=== PATIENT | female | born 1960 | race Caucasian/White ===

== ENCOUNTER 2017-07-18 09:19 | Outpatient (CLI) | payer BC ==
--- NOTE | 2017-07-18 15:38 | MMO ---
BILATERAL SCREENING MAMMOGRAM: DATE: 07/18/17 HISTORY: 57-year-old female for screening mammography. COMPARISON: None available. FINDINGS: Bilateral MLO and CC views of the breasts show scattered fibroglandular breast tissue. A benign-appe aring calcification is seen in the left breast. There is no evidence of suspicious mass, suspicious cluster of microcalcifications, or area of architectural distortion. Interpretation of this mammogram was performed with the assistance of computer-aided detection. IMPRESSION: BIRADS 2: Benign Finding(s) Annual screening mammography is recommended. POS: [facility]
== END 2017-07-18 09:20 | disposition home or self-care (01) ==
LOC: SCSMAMMO 09:19
PROVIDERS: ATTEND Family Medicine
DX: Z12.31 Encounter for screening mammogram for malignant neoplasm of breast (principal)
CPT/HCPCS: 77067; G0202

== ENCOUNTER 2018-12-31 15:16 | Outpatient (CLI) | payer BC ==
--- NOTE | 2018-12-31 16:10 | RAD ---
TWO VIEWS CHEST 12/31/18 PROVIDED CLINICAL HISTORY: Shortness of breath. FINDINGS: There is right convexity thoracic scoliosis. The cardiac and mediastinal silhouette is within normal limits. The lungs are hyperlucent suggesting emphysematous change. There is no focal consolidation, p leural fluid or pneumothorax apparent. IMPRESSION: Emphysematous changes are demonstrated. No evidence for an acute cardiopulmonary process. POS: [facility]
== END 2018-12-31 15:17 | disposition home or self-care (01) ==
LOC: BICRAD 15:16
PROVIDERS: ATTEND Internal Medicine Rheumatology
DX: R06.02 Shortness of breath (principal); J43.9 Emphysema, unspecified
CPT/HCPCS: 71046

== ENCOUNTER 2020-07-22 06:20 | Outpatient (CLI) | payer BC, OTHER ==
[2020-07-22 11:51] LABS: Hemoglobin 14.6 g/dL (12.0-16.0); Mean Corpuscular HGB CONC 33.6 g/dL (32.0-36.0); Mean Corpuscular Hemoglobin 31.5 pg (27.0-31.0); Mean Corpuscular Volume 93.6 fL (78.0-98.0); Mean Platelet Volume 9.2 fL (7.4-10.4); Platelet Count 222 thou/uL (130-400); RBC Distribution Width 12.3 % (11.5-14.5); Red Blood Cell (RBC) Count 4.66 mill/uL (4.20-5.40); White Blood Cell (WBC) Count 4.8 thou/uL (4.8-10.8)
[2020-07-22 12:37] LABS: Chloride 102 mmol/L (98-107); Potassium 4.5 mmol/L (3.5-5.1); Sodium 139 mmol/L (136-145)
[2020-07-22 12:38] LABS: Glucose 93 mg/dL (80-115)
[2020-07-22 12:40] LABS: Anion Gap 12 mmol/L (10-20); Carbon Dioxide 30 mmol/L (23-31)
[2020-07-22 12:42] LABS: Calc. Creatinine Clearance 0 mL/min (70-130); Estimated GFR-MDRD 53
[2020-07-22 12:43] LABS: BUN (Urea Nitrogen) 12 mg/dL (9.8-20.1)
[2020-07-22 19:43] LABS: SARS-CoV-2 MS2 Positive; SARS-CoV-2 N Gene Negative; SARS-CoV-2 S Gene Negative; SARS-CoV-2 by NAA Not Detected (NotDetected); SARS-CoV-2 orf1ab Negative
== END 2020-07-22 06:21 | disposition home or self-care (01) ==
LOC: LABBT 06:20
PROVIDERS: ATTEND Thoracic Surgery (Cardiothoracic Vascular Surgery)
DX: Z01.812 Encounter for preprocedural laboratory examination (principal); I25.10 Atherosclerotic heart disease of native coronary artery without angina pectoris; Z20.828 Contact with and (suspected) exposure to other viral communicable diseases
CPT/HCPCS: 80048; 85027; 87635; U0003

== ENCOUNTER 2020-07-22 09:45 | Inpatient (IN) | payer BC ==
--- NOTE | 2020-07-26 22:54 | HP ---
DATE OF SURGERY: 07/27/2020. HISTORY OF PRESENT ILLNESS: This is a 60-year-old female, who presented to Dr. Ramires after having an episode of bradycardia while getting local anesthesia for cataract surgery, which was then canceled. She had an abnormal stress test followed by subsequent CT calcium score in the 99th percentile for her age and finally a cardiac cath about 6 weeks ago showing severe 3-vessel coronary artery disease with preserved left ventricular ejection fraction. 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 She has not smoked for 30 years, has no hypertension, no family history and only mild cholesterol elevation by her account, although she does not know the number. PAST MEDICAL HISTORY: Significant only for cholesterol as well as depression and anxiety. MEDICATIONS: Include; 1. Crestor 20. 2. Aspirin 81. 3. Wellbutrin 150 extended release tablet daily. 4. Cymbalta 30 mg daily. 5. Nasal spray. 6. Lorazepam 0.5 mg as needed at bedtime. 7. Adderall 10 mg tablets twice a day as needed. ALLERGIES: NONE KNOWN. SOCIAL HISTORY: She is , although her has a different last name because that is how they do it when they are professors according to her. She does drink alcohol. FAMILY HISTORY: Hypertension and cancer. PHYSICAL EXAMINATION: VITAL SIGNS: Height 5 feet 4 inches, weight 134 pounds, and BMI 23. GENERAL: Alert, cooperative, and anxious lady. NECK: No carotid bruits. LUNGS: Clear to auscultation. CARDIAC: Regular rate and rhythm. No murmurs. ABDOMEN: Soft, nontender, and nondistended. EXTREMITIES: No edema. Peripheral pulses intact with a good Jatin's test in the left arm. NEUROLOGIC: Grossly normal. PLAN: At this time is for multivessel coronary artery bypass grafting to LAD, diagonal, ramus, right PDA and right posterior lateral with possible radial graft to the ramus. Informed consent has been obtained. Job ID: [id number]
[2020-07-27] MEDS ORDERED: Dexmedetomidine 200 MCG/2 ML VIAL ONE (06:33)
[2020-07-27] MEDS ORDERED: Vecuronium 10 MG VIAL ONE ×3 (06:33→09:19)
[2020-07-27] MEDS ORDERED: Midazolam HCl 5 mg/5 ml Vial ONE (06:33)
[2020-07-27] MEDS ORDERED: Midazolam HCl 2 mg/2 ml Vial ONE (06:33)
[2020-07-27] MEDS ORDERED: Fentanyl 100 MCG/2 ML VIAL ONE ×2 (06:33→13:56)
[2020-07-27] MEDS ORDERED: Albumin 5% 500 ML ONE (06:35)
[2020-07-27] MEDS ORDERED: Heparin 10,000 UNITS/1 ML VIAL 30,000 UNITS in Sodium Chloride 0.9% 1,000 ML FS SCH (06:45)
[2020-07-27] MEDS ORDERED: Aminocaproic Acid 5 GM/20 ML VIAL ONE (09:19)
[2020-07-27] MEDS ORDERED: Cardioplegic Soln 1,000 ML BAG ONE (09:19)
[2020-07-27] MEDS ORDERED: PROPOFOL 200 MG/20 ML VIAL ONE (09:19)
[2020-07-27] MEDS ORDERED: Potassium Chloride 60 MEQ/30 ML VIAL ONE (09:19)
[2020-07-27] MEDS ORDERED: Dexamethasone 20 MG/5 ML VIAL ONE (09:19)
[2020-07-27] MEDS ORDERED: Magnesium Sulfate 1 GM/2 ML VIAL ONE (09:19)
[2020-07-27] MEDS ORDERED: EPHEDRINE 25 MG/5 ML SYRINGE ONE (09:19)
[2020-07-27] MEDS ORDERED: Heparin 30,000 units/30 ml VIAL ONE (09:19)
[2020-07-27] MEDS ORDERED: Heparin 5,000 UNITS/ML VIAL ONE (09:19)
[2020-07-27] MEDS ORDERED: Protamine Sulfate 250 MG/25 ML VIAL ONE (09:19)
[2020-07-27] MEDS ORDERED: Calcium Chloride 1 GM/10 ML Abboject SYRINGE ONE (09:19)
[2020-07-27] MEDS ORDERED: Glycopyrrolate 0.2 MG/ML 5 ML SYRINGE ONE (09:19)
[2020-07-27] MEDS ORDERED: PHENYLEPHRINE-NS 100 MCG/ML 10 ML SYRINGE ONE (09:19)
[2020-07-27] MEDS ORDERED: Lidocaine 1% PF 5 ML VIAL ONE ×2 (09:19)
[2020-07-27] MEDS ORDERED: Ondansetron PF 4 MG/2 ML Vial ONE (09:19)
[2020-07-27] MEDS ORDERED: Mannitol 12.5 GM/50 ML ONE (09:19)
[2020-07-27] MEDS ORDERED: Papaverine 60 MG/2 ML VIAL ONE (09:19)
[2020-07-27] MEDS ORDERED: Nitroglycerin 50 MG/250 ML BOT ONE (09:19)
[2020-07-27] MEDS ORDERED: Sodium Bicarb 50 MEQ/50 ML Abboject 8.4% SYRINGE ONE (09:19)
[2020-07-27] MEDS ORDERED: Lidocaine 2% PF 100 mg/5 ml Syringe ONE (09:19)
[2020-07-27] MEDS ORDERED: Thrombin 5000 UNITS/5 ML VIAL ONE (09:19)
[2020-07-27] MEDS ORDERED: Ketorolac Tromethamine 30 MG/ML VIAL ONE (09:19)
[2020-07-27] MEDS ORDERED: Albumin 5% 250 ML ONE ×3 (13:28→13:49)
[2020-07-27] MEDS ORDERED: Potassium Chloride 20 MEQ/100 ML PREMIX BAG IVPB PRN (13:32)
[2020-07-27] MEDS ORDERED: Acetaminophen 325 MG TAB PO PRN (13:32)
[2020-07-27] MEDS ORDERED: Bisacodyl 10 MG SUPP PR PRN (13:32)
[2020-07-27] MEDS ORDERED: Fentanyl 100 MCG/2 ML VIAL SLOW IVP PRN (13:32)
[2020-07-27] MEDS ORDERED: hydrALAZINE 20 MG/ML VIAL SLOW IVP PRN (13:32)
[2020-07-27] MEDS ORDERED: Morphine 2 MG/ML VIAL SLOW IVP PRN (13:32)
[2020-07-27] MEDS ORDERED: Guaifenesin DM 100-10/5 ML UDCUP PO PRN (13:32)
[2020-07-27] MEDS ORDERED: Mag-Al 1200 mg/1200 mg/30 ML UDCUP PO PRN (13:32)
[2020-07-27] MEDS ORDERED: Nitroglycerin 50 MG/250 ML BOT 250 ML IVPB PRN (13:32)
[2020-07-27] MEDS ORDERED: niCARdipine 25 MG in Sodium Chloride 0.9% 250 ML 250 ML IVPB PRN (13:32)
[2020-07-27] MEDS ORDERED: Magnesium 2 GM/50 ML 2 GM in Premix Bag 1 BAG IVPB SCH (13:32)
[2020-07-27] MEDS ORDERED: Bisacodyl 5 MG TAB PO PRN (13:32)
[2020-07-27] MEDS ORDERED: Norepinephrine 8 MG/0.9% NS 250 ML IVPB PRN (13:32)
[2020-07-27] MEDS ORDERED: Hetastarch 6% 500 ML 500 ML IVPB PRN (13:32)
[2020-07-27] MEDS ORDERED: Post-Op Insulin Drip Protocol IVPB ONE (13:32)
[2020-07-27] MEDS ORDERED: Insulin Regular 300 UNITS/3 ML VIAL ONE (13:37)
[2020-07-27] MEDS ORDERED: DOPamine 400 MG/D5W 250 ML 250 ML ONE (13:43)
[2020-07-27] MEDS: Sodium Chloride 0.9% 1,000 ML IV SCH ×2 (13:45→23:34)
[2020-07-27] MEDS: DOPamine 400 MG/D5W 250 ML 250 ML IVPB PRN (13:45)
[2020-07-27 13:49] LABS: INR-International Normal Ratio 1.5; PTT 39.9 sec (22.9-36.1); Prothrombin Time 18.1 sec (12.0-14.7)
--- NOTE | 2020-07-27 13:58 | RAD ---
RADIOGRAPH CHEST 1 VIEW: DATE: 07/27/2020 TIME: 1:36 PM HISTORY: 60-year-old female status post open heart surgery COMPARISON: 12/31/2018 FINDINGS: Supine positioning makes this insensitive for pneumothorax detection. New sternotomy wires. New right sided central venous catheter with distal tip overlying right atrium. New left basilar drainage catheter. The visualized lung goodwin are grossly clear except for questionable small irregularly-shaped nodular density right upper lung zone partially overlapping the central vascular catheter. No cardiomegaly or pulmonary edema. IMPRESSION: 1) status post coronary artery bypass graft surgery. 2) right-sided central vascular catheter and left basilar drainage catheter..
[2020-07-27] MEDS ORDERED: Dextrose 50% Abboject 50 ML SYRINGE SLOW IVP PRN (14:00)
[2020-07-27] MEDS ORDERED: Dextrose 5% in Water 1,000 ML IV PRN (14:00)
[2020-07-27] MEDS ORDERED: HUMULIN R 100 UNITS in Sodium Chloride 0.9% 100 ML IVPB SCH (14:00)
[2020-07-27 14:03] LABS: Anion Gap 8 mmol/L (10-20); BUN (Urea Nitrogen) 7 mg/dL (9.8-20.1); Calc. Creatinine Clearance 91 mL/min (70-130); Calcium 6.7 mg/dL (7.8-10.44); Carbon Dioxide 21 mmol/L (23-31); Chloride 115 mmol/L (98-107); Estimated GFR-MDRD Greater than 90; Glucose 169 mg/dL (80-115); Potassium 3.8 mmol/L (3.5-5.1); Sodium 140 mmol/L (136-145)
[2020-07-27 14:05] LABS: #Lymphocytes 0.7 thou/uL (1.20-3.40); #Monocytes 0.2 thou/uL (0.11-0.59); #Neutrophils 6.4 thou/uL (1.40-6.50); %Eosinophils 0.6 % (0.0-10.0); %Lymphocytes 9.1 % (21.0-51.0); %Monocytes 2.5 % (0.0-10.0); %Neutrophils 87.9 % (42.0-75.0); Hemoglobin 9.7 g/dL (12.0-16.0); MDiff Complete? YES; Mean Corpuscular HGB CONC 32.6 g/dL (32.0-36.0); Mean Corpuscular Hemoglobin 30.7 pg (27.0-31.0); Mean Corpuscular Volume 94.2 fL (78.0-98.0); Mean Platelet Volume 8.7 fL (7.4-10.4); Platelet Count 119 thou/uL (130-400); Platelet Morphology Comment Appears Decreased; Polychromasia SLIGHT = 2-3 cells (100X) (0-2/hpf); RBC Distribution Width 12.1 % (11.5-14.5); Red Blood Cell (RBC) Count 3.16 mill/uL (4.20-5.40); White Blood Cell (WBC) Count 7.3 thou/uL (4.8-10.8)
[2020-07-27] MEDS: Insulin Regular 300 UNITS/3 ML VIAL SC PRN (14:06)
[2020-07-27] MEDS: CEFAZOLIN 2 GM in Premix Bag 1 BAG IVPB SCH ×2 (14:12→21:19)
[2020-07-27] MEDS: Ondansetron PF 4 MG/2 ML Vial IVP PRN (14:42)
[2020-07-27] MEDS: Ketorolac Tromethamine 30 MG/ML VIAL IVP SCH ×2 (14:43→23:33)
[2020-07-27] MEDS: Fentanyl 100 MCG/2 ML VIAL SLOW IVP PRN ×2 (15:02→17:27)
[2020-07-27 18:55] LABS: Potassium 4.1 mmol/L (3.5-5.1)
[2020-07-27] MEDS: Famotidine/PF 20 mg/2ml Vial SLOW IVP SCH (21:18)
[2020-07-27] MEDS: HYDROcodone/Acetaminophen 5/325 mg Tablet PO PRN (21:18)
[2020-07-27] MEDS: Atorvastatin Calcium 10 MG TAB PO SCH (21:18)
[2020-07-28] MEDS: CEFAZOLIN 2 GM in Premix Bag 1 BAG IVPB SCH (06:17)
[2020-07-28 06:32] LABS: #Lymphocytes 0.8 thou/uL (1.20-3.40); #Monocytes 0.5 thou/uL (0.11-0.59); #Neutrophils 5.3 thou/uL (1.40-6.50); %Basophils 0.5 % (0.0-1.0); %Eosinophils 0.2 % (0.0-10.0); %Lymphocytes 11.8 % (21.0-51.0); %Monocytes 7.6 % (0.0-10.0); %Neutrophils 79.9 % (42.0-75.0); Hemoglobin 9.6 g/dL (12.0-16.0); Mean Corpuscular HGB CONC 33.8 g/dL (32.0-36.0); Mean Corpuscular Hemoglobin 32.2 pg (27.0-31.0); Mean Corpuscular Volume 95.4 fL (78.0-98.0); Mean Platelet Volume 9.1 fL (7.4-10.4); Platelet Count 136 thou/uL (130-400); RBC Distribution Width 12.4 % (11.5-14.5); Red Blood Cell (RBC) Count 2.96 mill/uL (4.20-5.40); White Blood Cell (WBC) Count 6.7 thou/uL (4.8-10.8)
--- NOTE | 2020-07-28 07:18 | EKG ---
Test Reason : POST CABG Blood Pressure : / mmHG Vent. Rate : 069 BPM Atrial Rate : 069 BPM P-R Int : 166 ms QRS Dur : 086 ms QT Int : 486 ms P-R-T Axes : 042 055 039 degrees QTc Int : 520 ms Normal sinus rhythm Prolonged QT Abnormal ECG No previous ECGs available Confirmed by DR. Marley GARCIA ([id number]) on 07/28/2020 7:18:11 AM Referred By: JACOB Confirmed By:DR. Marley GARCIA
--- NOTE | 2020-07-28 07:55 | RAD ---
CHEST 1 VIEW: Date: 07/28/2020 INDICATION: 60-year-old female with open heart surgery. COMPARISON: Prior exam dated 07/27/2020. FINDINGS: Heart size is upper limits of normal. Midline sternotomy changes, midline mediastinal drain, right miller bclavian central venous catheter are unchanged. No pneumothorax is evident. No air space disease is e vident. No pleural effusion is noted. No acute osseous abnormality is evident. IMPRESSION: 1. No definite acute abnormality. 2. Stable tubes and lines. POS: [facility]
[2020-07-28] MEDS: Ketorolac Tromethamine 30 MG/ML VIAL IVP SCH ×3 (08:06→17:37)
[2020-07-28] MEDS: DOPamine 400 MG/D5W 250 ML 250 ML IVPB PRN (08:15)
[2020-07-28] MEDS: Famotidine/PF 20 mg/2ml Vial SLOW IVP SCH ×2 (08:36→20:59)
--- NOTE | 2020-07-28 08:38 | PRG ---
DATE OF SERVICE: 07/28/2020 SUBJECTIVE: Ms. Amaral underwent bypass surgery yesterday. She is sitting up in the chair, but she is hypotensive. No dyspnea, feels lightheaded. OBJECTIVE: VITAL SIGNS: Blood pressure is 78 systolic, pulse is 100. LUNGS: Clear. CARDIAC: Tachycardiac. Ext warm and dry ASSESSMENT: 1. Hypotension. 2. S/P CABG. PLAN: She will go back in bed. She is on pressors and give fluid. Job ID: [id number] MTDD
[2020-07-28] MEDS: Aspirin 325 MG TAB PO SCH ×2 (09:00→13:40)
[2020-07-28] MEDS ORDERED: FLU VACC QS2020-21(6MOS UP)/PF 60 MCG/0.5 ML SYRINGE IM ONE (09:00)
--- NOTE | 2020-07-28 09:05 | PRG ---
DATE OF SERVICE: 07/28/2020 SUBJECTIVE: Magali Amaral post CABG was admitted to the ICU with significant pain, but no shortness of breath. OBJECTIVE: VITAL SIGNS: Heart rate is 90, blood pressure 103/50, and sats 100%. GENERAL: She is on dopamine. CHEST: No wheezing and no crackles. CARDIAC: Normal S1 and S2. ABDOMEN: No masses. RADIOLOGY: X-rays unremarkable. LABORATORY DATA: White count 6000, H and H 9 and 28, and platelet count is normal. Glucose 130. ASSESSMENT: Status post coronary artery bypass grafting, stable. PLAN: Continue aggressive PT and supportive care. We will follow. Job ID: [id number]
[2020-07-28 09:08] LABS: Anion Gap 9 mmol/L (10-20); BUN (Urea Nitrogen) 7 mg/dL (9.8-20.1); Calc. Creatinine Clearance 87 mL/min (70-130); Calcium 7.4 mg/dL (7.8-10.44); Carbon Dioxide 22 mmol/L (23-31); Chloride 112 mmol/L (98-107); Estimated GFR-MDRD 89; Glucose 132 mg/dL (80-115); Potassium 4.2 mmol/L (3.5-5.1); Sodium 139 mmol/L (136-145)
--- NOTE | 2020-07-28 09:22 | CON ---
DATE OF CONSULTATION: REASON FOR CONSULTATION: This is a 60-year-old female, status post CABG, postop in the ICU. In fact, she is already extubated. History is outlined by the surgeon. Apparently, a former smoker, quit smoking 30 years ago. She had a recent catheterization for abnormal cardiac CT scan which revealed multivessel disease for which she underwent bypass. PAST MEDICAL HISTORY: Otherwise pertinent for above-mentioned mild cholesterol, depression, anxiety. PREVIOUS SURGERIES: None. Scheduled for cataract surgery. HOME MEDICATIONS: Include, 1. Crestor 20. 2. Ativan p.r.n. 3. Vitamin p.r.n. 4. Adderall 10 mg p.r.n. 5. Flonase p.r.n. 6. Bupropion XL 150 a day. 7. Cymbalta 30 a day. ALLERGIES: NONE. SOCIAL HISTORY: Professor at [employer]. REVIEW OF SYSTEMS: Unremarkable. PHYSICAL EXAMINATION: VITAL SIGNS: Blood pressure is 96/64, pulse , respiratory rate 18. CHEST: No wheezing. No crackles. CARDIAC: Normal S1, S2. No gallops. ABDOMEN: No masses. LABORATORY DATA: Her chemistry profile is normal. Renal function normal. Glucose 165. White count 7000, H and H 9 and 29, platelet count 119. Chest x-ray shows a questionable right upper lung infiltrate. IMPRESSION: 1. Former smoker. 2. Status post coronary artery bypass grafting, extubated. 3. History of depression, anxiety. 4. Abnormal chest x-ray. PLAN: The patient appears to be stable. When she is out of the ICU, we can repeat a chest x-ray PA and lateral to assess the right upper lung density. Her last x-ray otherwise was more than a year ago which was normal. We will follow. Job ID: [id number]
[2020-07-28 09:36] LABS: Glucose 156 mg/dL (80-115); Glucose 157 mg/dL (80-115)
[2020-07-28] MEDS: Insulin Regular 300 UNITS/3 ML VIAL SC PRN (10:57)
--- NOTE | 2020-07-28 11:13 | PRG ---
DATE OF SERVICE: 07/28/2020 SUBJECTIVE: The patient is now 1 day post coronary artery bypass grafting x6. Chest tube output is about 650 mL since surgery. Her hemoglobin drifted from 06/27 to about 9 and then received a unit of blood and this morning her hemoglobin is 9.6. Her platelet count is satisfactory. Chemistries are normal. Her chest x-ray shows perhaps slight haziness on the left suggesting a left effusion. She is currently sitting up in the chair, but still is on dopamine currently at 7 mcg/kg per minute to keep her blood pressure about 90. Her urine output has been somewhat low 20-300/hr_ range after having a significant diuresis yesterday postoperatively when she received significant volume loading. She has complaints only of some mild discomfort. Her respiratory efforts are very shallow and breath sounds are very distant. PLAN: Plan at this time is to continue pressor support as needed with possible switch to phenylephrine as I think it is more of a volume related thing than a contractility of the heart related issue. Satisfactory course to this point. Job ID: [id number] MTDD
--- NOTE | 2020-07-28 11:35 | OP ---
DATE OF PROCEDURE: 07/27/2020 PREOPERATIVE DIAGNOSIS: Coronary artery disease. PROCEDURE PERFORMED: Coronary artery bypass graft x6, left internal mammary artery good quality to a 1.5 mm LAD prior to its bifurcation. Left radial artery small but good quality to a 1.5 mm ramus, just as it became intramyocardial. Saphenous vein good quality to a 1.25 mm OM, 1.5 mm diagonal, 1.5 mm PDA, 1.[address] TELEHEALTH CASE MANAGER: Michele Conn MD. TRANSFUSION: None. DESCRIPTION OF PROCEDURE: After adequate anesthesia had been obtained, the patient was prepped and draped, and I did a left radial artery harvest, ensuring good collateral flow with plethysmography and then performed a median sternotomy harvesting the left internal mammary artery and entering the left pleura during this process. Dr. Conn did an endovascular vein harvest on the left greater saphenous vein and in the process of this, ended up doing an open vein harvest. Following completion of the vein harvest, the patient was heparinized. The mammary divided distally and brought behind a remnant of thymus gland and through an incision in the pericardium. Aorta and right atrium were cannulated, and cardiopulmonary bypass was begun. The aorta was cross-clamped, and after a liter of [place] cardioplegic solution, distal anastomoses were all completed. Following completion of this with 7-0 Prolene sutures, the cross-clamp was removed and the partial-occluding clamp placed and the saphenous vein graft from the PDA, the OM, and the diagonal was anastomosed to the aortic root and marked with rings. To the side of the OM vein graft at the aortic root, the radial was placed on its skinner. Following this, a partial-occluding clamp was removed and the posterolateral vein graft was anastomosed to the side of the PDA vein graft at about the mid right atrium. Distal anastomoses were inspected and hemostasis was managed with Prolene sutures as needed. The patient was weaned from cardiopulmonary bypass. Cannula was removed and protamine was given systemically. Mediastinal and left pleural drains were placed, following which the sternum was reapproximated with #7 interrupted wire using vancomycin paste on the sternal edges, platelet-rich blood, and platelet-poor plasma. Subcutaneous tissue and skin were closed in layers. Job ID: [id number]
[2020-07-28] MEDS: Polyethylene Glycol 3350 17 GM Packet PO SCH (11:39)
[2020-07-28] MEDS: Ondansetron PF 4 MG/2 ML Vial IVP PRN (11:54)
[2020-07-28] MEDS: HYDROcodone/Acetaminophen 5/325 mg Tablet PO PRN ×2 (13:36→21:00)
[2020-07-28] MEDS: Phenylephrine 10 MG in Sodium Chloride 0.9% 250 ML 250 ML IVPB SCH ×2 (16:50→21:00)
[2020-07-28] MEDS: Sodium Chloride 0.9% 1,000 ML IV SCH (16:53)
[2020-07-28 18:33] VITALS: BMI 21.7
[2020-07-28] MEDS: Atorvastatin Calcium 10 MG TAB PO SCH (20:59)
[2020-07-29] MEDS: Ketorolac Tromethamine 30 MG/ML VIAL IVP SCH ×4 (00:24→18:59)
[2020-07-29] MEDS: Phenylephrine 10 MG in Sodium Chloride 0.9% 250 ML 250 ML IVPB SCH (03:54)
[2020-07-29 05:15] LABS: #Eosinphils 0.1 thou/uL (0.0-0.7); #Lymphocytes 1.6 thou/uL (1.20-3.40); #Monocytes 0.5 thou/uL (0.11-0.59); #Neutrophils 3.5 thou/uL (1.40-6.50); %Basophils 0.5 % (0.0-1.0); %Lymphocytes 28.1 % (21.0-51.0); %Monocytes 8.6 % (0.0-10.0); %Neutrophils 61.8 % (42.0-75.0); Hemoglobin 8.7 g/dL (12.0-16.0); Mean Corpuscular HGB CONC 34.3 g/dL (32.0-36.0); Mean Corpuscular Hemoglobin 32.6 pg (27.0-31.0); Mean Corpuscular Volume 95.2 fL (78.0-98.0); Platelet Count 131 thou/uL (130-400); RBC Distribution Width 12.4 % (11.5-14.5); Red Blood Cell (RBC) Count 2.65 mill/uL (4.20-5.40); White Blood Cell (WBC) Count 5.6 thou/uL (4.8-10.8)
[2020-07-29 05:33] LABS: Anion Gap 5 mmol/L (10-20); BUN (Urea Nitrogen) 11 mg/dL (9.8-20.1); Calc. Creatinine Clearance 85 mL/min (70-130); Calcium 8.1 mg/dL (7.8-10.44); Carbon Dioxide 26 mmol/L (23-31); Chloride 112 mmol/L (98-107); Estimated GFR-MDRD 89; Glucose 88 mg/dL (80-115); Sodium 139 mmol/L (136-145)
[2020-07-29] MEDS: Sodium Chloride 0.9% 1,000 ML IV SCH (06:47)
--- NOTE | 2020-07-29 09:16 | PRG ---
DATE OF SERVICE: 07/29/2020 SUBJECTIVE: A 60-year-old female, post CABG. She is still hypotensive, on Milan-Synephrine. OBJECTIVE: VITAL SIGNS: Temperature 98, pulse 94, sats 100%, blood pressure is 100/54. CHEST: No wheezing. No crackles. CARDIAC: Normal S1, S2. No gallops. ABDOMEN: No masses. LABORATORY DATA: Glucose is 87. White count 5000. DIAGNOSTIC DATA: X-ray shows small left-sided pleural effusion. IMPRESSION: Post CABG, hypotension. PLAN: Continue supportive care. Baseline cortisol level is being ordered. Follow while in the ICU. Job ID: [id number]
[2020-07-29] MEDS: Aspirin 325 MG TAB PO SCH (09:56)
[2020-07-29] MEDS: Famotidine/PF 20 mg/2ml Vial SLOW IVP SCH ×2 (09:59→22:00)
[2020-07-29] MEDS: Polyethylene Glycol 3350 17 GM Packet PO SCH (10:05)
--- NOTE | 2020-07-29 10:10 | RAD ---
CHEST 1 VIEW: INDICATION: Status post open heart surgery. COMPARISON: Prior study dated 07/28/2020. FINDINGS: There is worsening airspace disease of the left perihilar and right infrahilar region which may refle ct edema. Right subclavian central venous catheter is stable. Mediastinal drain is stable. Midline sternotomy changes are stable. There are tiny bilateral pleural effusions. No pneumothorax is demo nstrated. IMPRESSION: 1. Worsening perihilar airspace opacities with tiny pleural effusions suspicious for volume overload or mild congestive heart failure. Continued followup is recommended. 2. Midline sternotomy changes, midline mediastinal drainage, and right subclavian central venous cat heter are stable. 3. No pneumothorax demonstrated. POS: [facility]
[2020-07-29] MEDS ORDERED: Phenylephrine 40 MG in Sodium Chloride 0.9% 250 ML 250 ML IVPB SCH (14:15)
[2020-07-29] MEDS: Atorvastatin Calcium 10 MG TAB PO SCH (22:00)
[2020-07-30] MEDS: Ketorolac Tromethamine 30 MG/ML VIAL IVP SCH ×4 (00:36→17:46)
[2020-07-30 04:28] LABS: #Basophils 0.1 thou/uL (0.0-0.2); #Eosinphils 0.1 thou/uL (0.0-0.7); #Lymphocytes 1.1 thou/uL (1.20-3.40); #Monocytes 0.3 thou/uL (0.11-0.59); %Basophils 1.1 % (0.0-1.0); %Eosinophils 1.8 % (0.0-10.0); %Lymphocytes 20.3 % (21.0-51.0); %Monocytes 5.8 % (0.0-10.0); Hemoglobin 8.7 g/dL (12.0-16.0); Mean Corpuscular HGB CONC 34.3 g/dL (32.0-36.0); Mean Corpuscular Hemoglobin 32.3 pg (27.0-31.0); Mean Corpuscular Volume 94.3 fL (78.0-98.0); Mean Platelet Volume 7.9 fL (7.4-10.4); Platelet Count 126 thou/uL (130-400); RBC Distribution Width 12.2 % (11.5-14.5); Red Blood Cell (RBC) Count 2.69 mill/uL (4.20-5.40); White Blood Cell (WBC) Count 5.6 thou/uL (4.8-10.8)
[2020-07-30 05:40] LABS: Anion Gap 10 mmol/L (10-20); BUN (Urea Nitrogen) 10 mg/dL (9.8-20.1); Calc. Creatinine Clearance 91 mL/min (70-130); Calcium 8.1 mg/dL (7.8-10.44); Carbon Dioxide 24 mmol/L (23-31); Chloride 110 mmol/L (98-107); Estimated GFR-MDRD Greater than 90; Glucose 98 mg/dL (80-115); Potassium 3.9 mmol/L (3.5-5.1); Sodium 140 mmol/L (136-145)
[2020-07-30] MEDS: Famotidine/PF 20 mg/2ml Vial SLOW IVP SCH ×2 (08:05→20:24)
[2020-07-30] MEDS: Aspirin 325 MG TAB PO SCH (08:05)
[2020-07-30] MEDS: Polyethylene Glycol 3350 17 GM Packet PO SCH (08:05)
[2020-07-30] MEDS: HYDROcodone/Acetaminophen 5/325 mg Tablet PO PRN (09:11)
--- NOTE | 2020-07-30 09:42 | PRG ---
DATE OF SERVICE: 07/30/2020 SUBJECTIVE: This morning, awake, alert, responsive, less pain, less shortness of breath. OBJECTIVE: VITAL SIGNS: Temperature 98, sats 90% on room air, blood pressure 120/70, pulse 100, irregular. CHEST: No wheezing, no crackles. CARDIAC: Normal S1 and S2. No gallops. ABDOMEN: No masses. ASSESSMENT: Status post coronary artery bypass grafting, status post postoperative hypotension. Pain. PLAN: Continue supportive care, PT. Disposition as per Cardiology. We will follow her in the ICU. Job ID: [id number]
--- NOTE | 2020-07-30 09:59 | RAD ---
Chest one view HISTORY: Heart surgery. Follow-up. COMPARISON: 07/29/2020. FINDINGS: Cardiac silhouette is magnified by projection. Pulmonary vasculature remains upper limits o f normal. Parenchymal and pleural opacity at the left base is stable. Mediastinum is midline with postoperative changes and right subclavian central venous catheter. No evidence of pneumothorax. IMPRESSION : Stable postoperative appearance of the chest.
[2020-07-30] MEDS ORDERED: Bisacodyl 10 MG SUPP PR PRN (17:52)
[2020-07-30] MEDS ORDERED: Bisacodyl 5 MG TAB PO PRN (17:52)
[2020-07-30] MEDS ORDERED: Zolpidem Tartrate 5 MG TAB PO PRN (17:52)
[2020-07-30] MEDS ORDERED: Mag-Al 1200 mg/1200 mg/30 ML UDCUP PO PRN (17:52)
[2020-07-30] MEDS ORDERED: diphenhydrAMINE 25 MG CAP PO PRN (17:52)
[2020-07-30] MEDS ORDERED: Guaifenesin DM 100-10/5 ML UDCUP PO PRN (17:52)
[2020-07-30] MEDS ORDERED: Nitroglycerin 0.4 MG TAB (25 Tab Bottle) SL PRN (17:52)
[2020-07-30] MEDS ORDERED: Mineral Oil ENEMA PR PRN (17:52)
[2020-07-30] MEDS: Atorvastatin Calcium 10 MG TAB PO SCH (20:24)
[2020-07-31] MEDS: HYDROcodone/Acetaminophen 5/325 mg Tablet PO PRN ×3 (02:05→19:48)
[2020-07-31 04:13] LABS: #Eosinphils 0.2 thou/uL (0.0-0.7); #Lymphocytes 1.1 thou/uL (1.20-3.40); #Monocytes 0.4 thou/uL (0.11-0.59); #Neutrophils 4.1 thou/uL (1.40-6.50); %Basophils 0.4 % (0.0-1.0); %Eosinophils 3.4 % (0.0-10.0); %Lymphocytes 18.6 % (21.0-51.0); %Monocytes 6.3 % (0.0-10.0); %Neutrophils 71.3 % (42.0-75.0); Hemoglobin 8.9 g/dL (12.0-16.0); Mean Corpuscular HGB CONC 33.8 g/dL (32.0-36.0); Mean Corpuscular Hemoglobin 31.4 pg (27.0-31.0); Mean Corpuscular Volume 92.9 fL (78.0-98.0); Mean Platelet Volume 8.3 fL (7.4-10.4); Platelet Count 178 thou/uL (130-400); Red Blood Cell (RBC) Count 2.82 mill/uL (4.20-5.40); White Blood Cell (WBC) Count 5.7 thou/uL (4.8-10.8)
[2020-07-31 04:34] LABS: Anion Gap 10 mmol/L (10-20); BUN (Urea Nitrogen) 9 mg/dL (9.8-20.1); Calc. Creatinine Clearance 90 mL/min (70-130); Carbon Dioxide 24 mmol/L (23-31); Chloride 109 mmol/L (98-107); Estimated GFR-MDRD Greater than 90; Glucose 115 mg/dL (80-115); Potassium 3.9 mmol/L (3.5-5.1); Sodium 139 mmol/L (136-145)
--- NOTE | 2020-07-31 07:51 | RAD ---
Chest one view HISTORY: Heart surgery. Follow-up. COMPARISON: 07/30/2020. FINDINGS: Cardiac silhouette is magnified parotid projection. Left margin partially obscured by atele ctasis and pleural fluid at the left base that are similar in appearance to prior study. Pulmonary vasculature slightly more pronounced than on the prior study. Mediastinum is midline with postoperative changes. Right subclavian central venous catheter unchanged . No evidence of pneumothorax. IMPRESSION : Slight interval increase in pulmonary vascular engorgement. Otherwise stable postoperative appearance of the chest.
[2020-07-31] MEDS ORDERED: Furosemide 40 MG TAB PO SCH ×2 (09:45→10:00)
[2020-07-31] MEDS ORDERED: Metoprolol Tartrate 25 MG TAB PO SCH (09:45)
[2020-07-31] MEDS: Famotidine/PF 20 mg/2ml Vial SLOW IVP SCH ×2 (10:02→19:49)
[2020-07-31] MEDS: Aspirin 325 MG TAB PO SCH (10:02)
[2020-07-31] MEDS: Polyethylene Glycol 3350 17 GM Packet PO SCH (10:04)
--- NOTE | 2020-07-31 11:40 | PDOC.CPN ---
- Subjective Date: 07/31/20 Time: 11:39 Interval history: No overnight events, patient doing well, sitting up in bed getting ready to shower. Patient states that she has walked in the hallways un-assisted several times. Denies chest pain, SOB, dizziness, fatigue, headache, LITTLEJOHN. - Review of Systems General: denies: fever/chills, weight/appetite/sleep changes, night sweats, fatigue Respiratory: denies: cough, congestion, shortness of breath, exercise intolerance Cardiovascular: denies: chest pain, palpitation, edema, paroxysmal nocturnal dyspnea, orthopnea Gastrointestinal: denies: nausea, vomiting, diarrhea, constipation, abd pain, GI bleeding Musculoskeletal: denies: pain, tenderness, stiffness, swelling, arthritis/arthralgias Neurological: denies: numbness, syncope, seizure, weakness - Objective Allergies/Adverse Reactions: Allergies Allergy/AdvReac Type Severity Reaction Status Date / Time No Known Allergies Allergy Verified 07/27/20 14:47 Visit Medications: Current Medications Hydrocodone Bitart/Acetaminophen (Hydrocodone/Acetaminophen 5/325 Mg Tablet) 1 tab PO Q4H PRN PRN Reason: Moderate Pain (4-6) Last Admin: 07/31/20 10:00 Dose: 1 tab Documented by: Hydrocodone Bitart/Acetaminophen (Hydrocodone/Acetaminophen 5/325 Mg Tablet) 2 tab PO Q4H PRN PRN Reason: Severe Pain (7-10) Last Admin: 07/30/20 09:11 Dose: 2 tab Documented by: Al Hydroxide/Mg Hydroxide (Mag-Al 1200 Mg/1200 Mg/30 Ml Udcup) 30 ml PO Q4H PRN PRN Reason: Indigestion Albuterol/Ipratropium (Ipratropium/Albuterol Sulfate 3 Ml Neb) 3 ml NEB [id number] PRN PRN Reason: SOB Aspirin (Aspirin 325 Mg Tab) 325 mg PO DAILY [facility] Last Admin: 07/31/20 10:02 Dose: 325 mg Documented by: Atorvastatin Calcium (Atorvastatin Calcium 10 Mg Tab) 10 mg PO QPM [facility] Last Admin: 07/30/20 20:24 Dose: 10 mg Documented by: Bisacodyl (Bisacodyl 5 Mg Tab) 10 mg PO Q12H PRN PRN Reason: Constipation Bisacodyl (Bisacodyl 10 Mg Supp) 10 mg MI Q12H PRN PRN Reason: Constipation Diphenhydramine HCl (Diphenhydramine 25 Mg Cap) 25 mg PO Q6H PRN PRN Reason: Itching & Insomnia or Tucker Alexander Famotidine (Famotidine/Pf 20 Mg/2ml Vial) 20 mg SLOW IVP Q12HR [facility] Last Admin: 07/31/20 10:02 Dose: 20 mg Documented by: Furosemide (Furosemide 40 Mg Tab) 40 mg PO DAILY[facility] Furosemide (Furosemide 40 Mg Tab) 40 mg PO NOW [facility] Stop: 07/31/20 12:00 Last Admin: 07/31/20 10:02 Dose: 40 mg Documented by: Guaifenesin/Dextromethorphan (Guaifenesin Dm 100-10/5 Ml Udcup) 15 ml PO Q4H PRN PRN Reason: Cough Metoprolol Tartrate (Metoprolol Tartrate 25 Mg Tab) 12.5 mg PO BID [facility] Metoprolol Tartrate (Metoprolol Tartrate 25 Mg Tab) 12.5 mg PO NOW [facility] Stop: 07/31/20 12:00 Last Admin: 07/31/20 10:03 Dose: 12.5 mg Documented by: Mineral Oil (Mineral Oil Enema) 133 ml MI DAILYPRN PRN PRN Reason: Constipation Nitroglycerin (Nitroglycerin 0.4 Mg Tab (25 Tab Bottle)) 0.4 mg SL Q5MIN PRN PRN Reason: Chest Pain Ondansetron HCl (Ondansetron Pf 4 Mg/2 Ml Vial) 4 mg IVP Q6H PRN PRN Reason: Nausea/Vomiting Last Admin: 07/28/20 11:54 Dose: 4 mg Documented by: Polyethylene Glycol (Polyethylene Glycol 3350 17 Gm Packet) 17 gm PO DAILY [facility] Last Admin: 07/31/20 10:04 Dose: Not Given Documented by: Sodium Chloride (Flush - Normal Saline 10 Ml Syringe) 10 ml IVF Q12HR [facility] Last Admin: 07/31/20 10:04 Dose: 10 ml Documented by: Zolpidem Tartrate (Zolpidem Tartrate 5 Mg Tab) 5 mg PO HSPRN PRN PRN Reason: Insomnia Vital Signs & Weight: Vital Signs Temp Pulse Resp BP BP Pulse Ox 07/31/20 07:51 99.0 F 120 H 21 H 136/80 95 07/31/20 03:21 97.3 F L 113 H 18 131/83 98 07/31/20 00:53 100 Weight 138 lb 1.6 oz - Physical Exam General: alert & oriented x3, appears well, no apparent distress HEENT: mucus membranes moist Neck: supple neck, no JVD/HJR Cardiac: regular rate and rhythm Lungs: clear to auscultation, normal breath sounds, no wheeze, rales, rhonchi, other (encouraged continue use of incentive spirometer) Neuro: grossly intact Abdomen: unremarkable, active bowel sounds, soft, non-tender, other (gauze and paper tape to chest tube incision, no drainage noted on bandage) Extremities: no cyanosis, other: (edema to left hand from radial graft, BRENDON bandage removed this morning by [facility] per patient report, healing inscision to LUE. Slight edema to right foot, vein graft, YAYA hose on, vein grafts covered with gauze and paper tape) Skin: other (healing incision to chest, central line to right subclavian) Musculoskeletal: normal range of motion, no pain - Labs Result Diagrams: 07/31/20 03:50 07/31/20 03:50 - Assessment/Plan Assessment/Plan: 1. CAD- s/p CABG 2. Post-op hypotension 3. Sinus tachycardia 4. HLD Lopressor BID added for tachycardia HR in 90's during exam, BP remains stable today in 130's-80's. Continue PT and IS. Patient is on ASA, Atorvastatin, and Metoprolol. Pt. seen and eval. by me. I agree with the A/P by the PA. Feeling better. Chest clear. RRR. No edema.gjmays
--- NOTE | 2020-07-31 12:18 | PRG ---
DATE OF SERVICE: 07/31/2020 SUBJECTIVE: Magali Amaral, post CABG, was transferred to the telemetry unit. She denies any difficulty breathing. She is walking in the borges. OBJECTIVE: VITAL SIGNS: Temperature 98, pulse respiratory rate 18, room air, and blood pressure 126/75. CHEST: No wheezing, no crackles. CARDIAC: Normal S1, S2. No gallops. ABDOMEN: No masses. DIAGNOSTIC DATA: X-ray still shows bilateral pleural effusions. ASSESSMENT: Congestive heart failure, status post coronary artery bypass grafting. Respiratory failure much improved. Pulmonary calixto, continue cardiac care. We will follow at a distance. Please call if needed. Job ID: [id number]
[2020-07-31] MEDS: Atorvastatin Calcium 10 MG TAB PO SCH (19:48)
[2020-07-31] MEDS: Metoprolol Tartrate 25 MG TAB PO SCH (19:49)
[2020-08-01 04:27] LABS: #Basophils 0.1 thou/uL (0.0-0.2); #Eosinphils 0.2 thou/uL (0.0-0.7); #Lymphocytes 1.5 thou/uL (1.20-3.40); #Monocytes 0.4 thou/uL (0.11-0.59); #Neutrophils 3.1 thou/uL (1.40-6.50); %Eosinophils 3.4 % (0.0-10.0); %Lymphocytes 28.7 % (21.0-51.0); %Monocytes 7.7 % (0.0-10.0); %Neutrophils 59.3 % (42.0-75.0); Mean Corpuscular HGB CONC 34.3 g/dL (32.0-36.0); Mean Corpuscular Volume 93.3 fL (78.0-98.0); Mean Platelet Volume 7.9 fL (7.4-10.4); Platelet Count 240 thou/uL (130-400); RBC Distribution Width 12.1 % (11.5-14.5); Red Blood Cell (RBC) Count 2.82 mill/uL (4.20-5.40); White Blood Cell (WBC) Count 5.2 thou/uL (4.8-10.8)
[2020-08-01 04:56] LABS: Anion Gap 11 mmol/L (10-20); BUN (Urea Nitrogen) 10 mg/dL (9.8-20.1); Calc. Creatinine Clearance 78 mL/min (70-130); Calcium 8.6 mg/dL (7.8-10.44); Carbon Dioxide 29 mmol/L (23-31); Chloride 105 mmol/L (98-107); Estimated GFR-MDRD 79; Glucose 107 mg/dL (80-115); Potassium 3.8 mmol/L (3.5-5.1); Sodium 141 mmol/L (136-145)
[2020-08-01] MEDS: HYDROcodone/Acetaminophen 5/325 mg Tablet PO PRN (05:06)
[2020-08-01] MEDS ORDERED: Furosemide 40 MG TAB PO SCH (07:30)
[2020-08-01] MEDS: Metoprolol Tartrate 25 MG TAB PO SCH (08:22)
[2020-08-01] MEDS: Aspirin 325 MG TAB PO SCH (08:22)
[2020-08-01] MEDS: Polyethylene Glycol 3350 17 GM Packet PO SCH (08:23)
--- NOTE | 2020-08-01 10:28 | PRG ---
DATE OF SERVICE: 08/01/2020 SUBJECTIVE: Ms. Amaral feels lightheaded at times. Further while, she is doing well. OBJECTIVE: VITAL SIGNS: Blood pressure most recent 135/80, pulse of 90 and it is sinus. LUNGS: Clear. CARDIAC: Normal S1. Normal S2. ABDOMEN: Soft and nontender. EXTREMITIES: No edema. ASSESSMENT: 1. Status post bypass surgery. 2. Hypotension, improving. PLAN: 1. She is on metoprolol tartrate 12.5 mg twice a day. 2. Aspirin. 3. Statin. 4. She will see us in about three weeks. Job ID: [id number]
[2020-08-01 11:42] VITALS: TEMP 98.1
[2020-08-01 12:23] VITALS: BP 145/72
--- NOTE | 2020-08-02 06:15 | DIS ---
DATE OF ADMISSION: 07/27/2020 DATE OF DISCHARGE: 08/01/2020 The patient was admitted, underwent coronary bypass graft x6. Her postoperative course was relatively unremarkable, although she did require pressor support for the first 48-72 hours, consisting of low-dose dopamine and then Milan-Synephrine. Ultimately, her blood pressure improved to 120-140 range. She will be discharged home on her admitting medications with a prescription for metoprolol 25 b.i.d. as well as pain medicine. Her discharge and followup instructions were given. Job ID: [id number]
--- NOTE | 2020-08-03 06:09 | PQF ---
CLINICAL DOCUMENTATION CLARIFICATION FORM: Dear : Bon Kim Date / Time: 08/03/20 0609 Please exercise your independent, professional judgment in responding to the clarification form. Clinical indicators are provided on the bottom of this form for your review Please check appropriate box(es): HEART FAILURE: A. ACUITY [ ] Acute [ ] Acute on Chronic [ ] Chronic B. TYPE: [ ] Systolic / HFrEF [ ] Diastolic / HFpEF [ ] Combined Systolic / Diastolic [ y] Other diagnosis _no chf at all [ ] Unable to determine In addition, please specify: Present on Admission (POA): [ ] Yes [y ] No [ ] Unable to determine Physician Signature: Date/Time: For continuity of documentation, please document condition throughout progress notes and discharge summary. Thank You. To be completed by CDI/Coding staff for physician review: Present Clinical Indicators - Signs / Symptoms / Labs Results and Location in Medical Record [X] BP 123/69, Pulse 106, Resp 22, Temp 98/5 Vital signs 07/29 [X] O2 sat: 95%; 94%; 96% Vital signs 07/29 [X] Chest X-ray: Worsening perihilar airspace opacities with tiny pleural effusions suspicious for volume overload or mild congestive heart failure. Pleural effusion Imaging Dr Bliss 07/29 [X] Abnormal chest x-ray Consult Dr Craig 07/27 [X] CHF PN p1 07/31 Dr Craig [X] preservered left ventricular ejection fraction H&P p1 07/27 Dr Kim [X] no edema H&P p2 07/27 Dr Kim Present Risk Factors Results and Location in Medical Record [X] 60 year-old Female H&P p1 07/27 Dr Kim [X] CAD H&P p1 07/27 Dr Kim [X] Former smoker H&P p1 07/27 Dr Kim [X] s/p CABG Operative report Dr Kim 07/27 [X] Hypercholesterolemia H&P p1 07/27 Dr Kim [X] HLD Anesthesia 07/27 Present Treatments Results and Location in Medical Record [X] Lasix 40 mg oral MAR 07/31 [X] Oxygen 1L via [place] Respiratory panel 07/29 [X] Chest X-ray Imaging Dr Bliss 07/29 [X] Cardiology Consult Consult 07/27 CDS/Financial Adviser Signature: Ines Samuels Phone #: [phone] Date/Time: 08/03/2020 0609 This is a permanent part of the Medical Record [facility]
--- NOTE | 2020-08-03 06:10 | PQF ---
CLINICAL DOCUMENTATION CLARIFICATION FORM: Dear : Bon Kim Date / Time: 08/03/20 0610 Please exercise your independent, professional judgment in responding to the clarification form. Clinical indicators are provided on the bottom of this form for your review Please check appropriate box(es): Respiratory Failure: Please specify acuity [ ] Acute [ ] Acute on Chronic [ ] Chronic [ ] Other diagnosis,please specify: [ ] Unable to determine Physician Signature: Date/Time: For continuity of documentation, please document condition throughout progress notes and discharge summary. Thank You. To be completed by CDI/Coding staff for physician review: Present Clinical Indicators - Signs / Symptoms / Labs Results and Location in Medical Record [X] BP 123/69, Pulse 106, Resp 22, Temp 98/5 Vital signs 07/29 [X] O2 sat: 95%; 94%; 96% Vital signs 07/29 [X] Chest X-ray: Worsening perihilar airspace opacities with tiny plueral effusions suspicious for volume overload or mild congestive heart failure. Pleural effusion Imaging Dr Bliss 07/29 [X] Abnormal chest x-ray Consult Dr Craig 07/27 [X] Respiratory failure much improved PN p1 07/31 Dr Craig Present Risk Factors Results and Location in Medical Record [X] 60 year-old Female H&P p1 07/27 Dr Kim [X] CAD H&P p1 07/27 Dr Kim [X] Former smoker H&P p1 07/27 Dr Kim [X] s/p CABG Operative report Dr Kim 07/27 [X] CHF PN p1 07/31 Dr Craig Present Treatments Results and Location in Medical Record [X] Lasix 40 mg oral DEC 28 [X] Oxygen 1L via [place] Respiratory panel 07/29 [X] Chest X-ray Imaging Dr Bliss 07/29 [X] [employer] Specialist consult Consult Dr Craig 07/27 [X] Incentive spirometer Cardio PN pg 3 07/31 CDS/Heading Pinner Signature: Ines Samuels Phone #: [phone] Date/Time: 08/03/2020 0610 Acute Respiratory Failure: ABG pH < 7.35 or > 7.45; Decreased oxygen saturation (<90% room air or < 95% on oxygen); PCO2 > 50 mm Hg; PO2 < 60 mm Hg; Labored or rapid respirations ARDS: Dx Criteria [Scott ARDS]: Respiratory symptoms within one week of a known clinical insult (e.g. shock, infection, surgery, trauma) Bilateral opacities in CXR/Chest CT not due to CHF or fluid This is a permanent part of the Medical Record MTDD
--- NOTE | 2020-08-03 06:12 | PQF ---
CLINICAL DOCUMENTATION CLARIFICATION FORM: Dear : Bon Kim Date / Time: 08/03/20 0611 Please exercise your independent, professional judgment in responding to the clarification form. Clinical indicators are provided on the bottom of this form for your review Please check appropriate box(s): [ ] Cardiogenic Shock [ ] Postoperative shock unspecified [ y ] Other diagnosis,please specify: __post op hypotension [ ] Unable to determine In addition, please specify: Present on Admission (POA): [ ] Yes [ y ] No [ ] Unable to determine Physician Signature: Date/Time: For continuity of documentation, please document condition throughout progress notes and discharge summary. Thank You. To be completed by CDI/Coding staff for physician review: Present Clinical Indicators - Signs / Symptoms / Labs Results and Location in Medical Record [X] Pulse 106, Resp 22, Temp 98.5 Vital signs 07/27 [X] BP 78/57; 64/47; 84/58 Vital signs 07/27 [X] Hypotension s/p CABG PN 07/28 Dr Ramires [X] Postop hypotension Cardio PN p4 07/31 Dr Chase [X] Sinus tachycardia Cardio PN p4 07/31 Dr Chase Present Risk Factors Results and Location in Medical Record [X] 60 year-old Female H&P p1 07/27 Dr Kim [X] CAD H&P p1 07/27 Dr Kim [X] Former smoker H&P p1 07/27 Dr Kim [X] s/p CABG Operative report Dr Kim 07/27 [X] CHF PN p1 07/31 Dr Craig Present Treatments Results and Location in Medical Record [X] Oxygen 1L via [place] Respiratory panel 07/29 [X] Lasix 40 mg oral MAR 07/31 [X] Dopamine 400 mg DEC 28 [X] Phenylephirne 10 mg DEC 28 CDS/Piggyback Clerk Signature: Ines Samuels Phone #: [phone] Date/Time: 08/03/2020 0611 This is a permanent part of the Medical Record [facility]
== END 2020-08-01 13:40 | disposition home or self-care (01) | DRG 235 ==
LOC: SURG A 07-27 05:55 → EDSTATUS 07-27 09:45 → CCU 07-27 13:23 → 2NO 07-30 16:57
PROVIDERS: ADMIT Thoracic Surgery (Cardiothoracic Vascular Surgery); ATTEND Thoracic Surgery (Cardiothoracic Vascular Surgery)
PROC: 021309W Bypass Coronary Artery, Four or More Arteries from Aorta with Autologous Venous Tissue, Open Approach (ICD-10-PCS; principal; 2020-07-27)
PROC: 02100Z9 Bypass Coronary Artery, One Artery from Left Internal Mammary, Open Approach (ICD-10-PCS; 2020-07-27)
PROC: 06BQ0ZZ Excision of Left Saphenous Vein, Open Approach (ICD-10-PCS; 2020-07-27)
PROC: 02100AW Bypass Coronary Artery, One Artery from Aorta with Autologous Arterial Tissue, Open Approach (ICD-10-PCS; 2020-07-27)
PROC: 03BC0ZZ Excision of Left Radial Artery, Open Approach (ICD-10-PCS; 2020-07-27)
PROC: 5A1221Z Performance of Cardiac Output, Continuous (ICD-10-PCS; 2020-07-27)
PROC: 3E033XZ Introduction of Vasopressor into Peripheral Vein, Percutaneous Approach (ICD-10-PCS; 2020-07-27)
PROC: 30233N1 Transfusion of Nonautologous Red Blood Cells into Peripheral Vein, Percutaneous Approach (ICD-10-PCS; 2020-07-27)
DX: I25.10 Atherosclerotic heart disease of native coronary artery without angina pectoris (principal); J96.90 Respiratory failure, unspecified, unspecified whether with hypoxia or hypercapnia; Z28.21 Immunization not carried out because of patient refusal; F32.9 Major depressive disorder, single episode, unspecified; F41.9 Anxiety disorder, unspecified; E78.00 Pure hypercholesterolemia, unspecified; E78.5 Hyperlipidemia, unspecified; I95.81 Postprocedural hypotension; R00.0 Tachycardia, unspecified; Z79.899 Other long term (current) drug therapy; Z79.82 Long term (current) use of aspirin; Z87.891 Personal history of nicotine dependence
CPT/HCPCS: 36415; 36416; 36430; 71045; 80048; 82533; 82947; 83090; 85025; 85610; 85730; 86850; 86900; 86901; 93005; 93010; 93798; J0690; J1100; J1265; J1642; J1644; J1815; J1885; J2001; J2150; J2250; J2370; J2405; J2440; J2704; J2720; J3010; J3370; J3475; J3480; J3490; J7050; P9016; P9045; S0017; S0028